=== PATIENT | female | born 1955 | race Caucasian/White ===

== ENCOUNTER → 2018-02-11 14:20 | Outpatient (CLI) | payer BC, SELFPAY ==
--- NOTE | 2018-02-11 | DI.RAD.S_ITS ---
PROCEDURE: XR CHEST 2V INDICATIONS: ASTHMA/WHEEZING TECHNIQUE: 2 views of the chest were acquired. COMPARISON: [facility], CT, PE STUDY (CTA CHEST), 05/03/2017, 10:59. [facility], CR, CHEST 1 VIEW, 05/03/2017, 9:33. [facility], CR, CHEST 2 VIEW, 06/26/2017, 13:04. FINDINGS: Surgical changes and devices: Rim calcified mammoplasty implants are incidentally noted. Lungs and pleura: No pleural effusions or pneumothorax. Lungs are clear. The lungs are hyperexpanded, with flattening of the hemidiaphragms seen. Mediastinum: Mediastinal contours are normal. Heart size is normal. Bones and chest wall: No suspicious bony abnormalities. Age-appropriate bony degenerative changes are seen. Soft tissues appear unremarkable. IMPRESSION: Hyperexpanded lungs are seen. No focal infiltrates are seen. Postoperative and degenerative changes are seen. Dictated by: Bobby Diallo M.D. on 02/11/2018 at 14:09 Approved by: Bobby Diallo M.D. on 02/11/2018 at 14:11
[2018-02-11 15:32] LABS: Add Manual Diff / Slide Review NO; Basophils Percent Auto 0.2 % (0-2); Eosinophils Percent Auto 0.1 % (2-4); Hematocrit 41.9 % (36-46); Hemoglobin 13.9 g/dL (12.0-16.0); Lymphocytes Percent Auto 6.5 % (25-40); Mean Corpuscular HGB Conc 33.3 % (30-36); Mean Corpuscular Hemoglobin 31.3 PG (26-34); Mean Corpuscular Volume 94.1 fL (80-100); Monocytes Percent Auto 4.2 % (3-14); Neutrophils Absolute Auto 9900 /uL (3000-5900); Platelet Count 296 X10^3/uL (150-400); Red Blood Cell Count 4.45 X10^6/uL (4.0-5.2); Red Cell Distribution Width 13.4 % (11.6-14.8); White Blood Cell Count 11.2 X10^3/uL (4.5-11.0)
[2018-02-11 15:48] LABS: BUN Creatinine Ratio 22.9 (6-22); Blood Urea Nitrogen 16 mg/dL (7-17); Calcium 9.2 mg/dL (8.4-10.2); Carbon Dioxide 31 mmol/L (22-32); Chloride 100 mmol/L (98-107); Estimated Glomerular Filt Rate > 60.0 mL/min (>60); Glucose 224 mg/dL (80-110); HEMOLYSIS < 15 (0-50); Potassium 5.1 mmol/L (3.4-5.1); Sodium 140 mmol/L (137-145)
[2018-02-11 17:26] LABS: Hemoglobin A1C% w Est Avg Glu 6.3 % (4.0-6.0)
== END ==
PROVIDERS: PCP Physician Assistant; Visit Provider Physician Assistant
DX: R06.02 Shortness of breath (principal); J45.998 Other asthma; R73.09 Other abnormal glucose
CPT/HCPCS: 36415; 71046; 80048; 83036; 85025

== ENCOUNTER → 2018-07-30 14:28 | Outpatient (CLI) | payer BC, SELFPAY ==
--- NOTE | 2018-07-30 | DI.RAD.S_ITS ---
PROCEDURE: XR CHEST 2V INDICATIONS: Severe persistent asthma, uncomplicated TECHNIQUE: 2 views of the chest were acquired. COMPARISON: [facility], CR, XR CHEST 2V, 02/11/2018, 14:23. FINDINGS: Surgical changes and devices: Bilateral breast implants. Lungs and pleura: Lungs are clear. No pleural effusions or pneumothorax. Mediastinum: Mediastinal contours are normal. Heart size is normal. Bones and chest wall: No suspicious bony abnormalities. Soft tissues appear unremarkable. IMPRESSION: No acute pulmonary process. Dictated by: Feli Sanabria M.D. on 07/30/2018 at 14:49 Approved by: Feli Sanabria M.D. on 07/30/2018 at 14:49
== END ==
PROVIDERS: Family Provider Physician Assistant; PCP Physician Assistant; Visit Provider Internal Medicine
DX: J45.50 Severe persistent asthma, uncomplicated (principal)
CPT/HCPCS: 71046

== ENCOUNTER 2019-02-08 12:04 | Emergency (ER) | payer BC, SELFPAY ==
[2019-02-08 12:12] VITALS: BP 156/77; PULSE 81; RESP 15; TEMP 36.6; O2SAT 100; BMI 27.3
--- NOTE | 2019-02-08 12:12 | DI.RAD.S_ITS ---
PROCEDURE: XR WRIST LT MIN 3V INDICATIONS: pain TECHNIQUE: 3 views of the wrist were acquired. COMPARISON: None. FINDINGS: Bones: No fractures or dislocations. No suspicious bony lesions. First CMC joint, triscaphe joint and radiocarpal joint osteoarthritis. Scaphoid view: Not requested. Soft tissues: No suspicious soft tissue calcifications. IMPRESSION: No fracture. No acute osseous lesion. If symptoms and/or clinical suspicion for pathology persists, further assessment with repeat radiographs (7-10 days) or advanced imaging (e.g. CT, MRI or bone scan) may be helpful. Dictated by: Griselda Greenfield MD, PhD on 02/08/2019 at 12:27 Approved by: Griselda Greenfield MD, PhD on 02/08/2019 at 12:30
[2019-02-08] MEDS: IBUPROFEN 400 MG TABLET PO (13:16)
--- NOTE | 2019-02-08 13:31 | ED.UPPEXIN ---
HPI - Extremity Injury (Upper) <BRENDA CarlP - Last Filed: 02/08/19 13:42> General Chief Complaint: Extremity Injury, Upper Stated Complaint: FALL LANDED ON LEFT THUMB/HAND Time Seen by Provider: 02/08/19 12:32 Source: patient Mode of arrival: Ambulatory Limitations: no limitations History of Present Illness HPI narrative: This is a 64-year-old female, smoker, who presents to ED with left base of thumb discomfort after fall on out reached hand. Patient reports she slipped on a rock in accidentally and fell backwards. She denies injuring other areas. Denies increasing pain in her left shoulder or elbow and reports is able to move without difficulty. She reports pain increases with movement on her right thumb but states sensation is intact. Related Data Home Medications Medication Instructions Recorded Confirmed Dulera 2 inh INH BID #0 05/03/17 02/08/19 tramadol 50 mg PO BID PRN #0 05/03/17 02/08/19 estradiol 1 mg PO DAILY 02/08/19 02/08/19 levothyroxine 100 mcg PO DAILY 02/08/19 02/08/19 meloxicam 15 mg PO DAILY 02/08/19 02/08/19 montelukast 10 mg PO DAILY 02/08/19 02/08/19 pravastatin 20 mg PO DAILY 02/08/19 02/08/19 venlafaxine mg PO 02/08/19 Allergies Allergy/AdvReac Type Severity Reaction Status Date / Time No Known Drug Allergies Allergy Unknown Verified 02/08/19 12:12 [NO KNOWN DRUG ALLERGIES] codeine [CODEINE] AdvReac Mild ITCHY Verified 02/08/19 12:12 Review of Systems <JAIME Carl - Last Filed: 02/08/19 13:42> Review of Systems Narrative: General: Denies fever, chills, fatigue, malaise, sweats. HEENT: Denies sinus pain, ear pain, sore throat, difficulty swallowing, dizziness. Respiratory: Denies dyspnea, cough, wheezing, hemoptysis, sputum. Cardiovascular: Denies chest pain, palpitations, orthopnea, edema. Gastrointestinal: Denies nausea, vomiting, abdominal pain, diarrhea, constipation, melena. : Denies dysuria, frequency, incontinence, hematuria, urinary retention. Musculoskeletal: See HPI Skin: Denies rash, skin lesions, or other. Neurologic: Denies weakness, headache, numbness, change in speech, confusion, seizures, incoordination. Psychiatric: No concerning psychosocial issues. 12-point review of systems is negative except for those stated above. PFSH <JAIME Carl - Last Filed: 02/08/19 13:42> Medical History (Updated 02/08/19 @ 13:35 by JAIME Carl) History of hypothyroidism (Acute) Hyperlipidemia (Acute) Surgical History (Updated 02/08/19 @ 13:35 by JAIME Carl) No pertinent past surgical history (Acute) Social History Smoking Status: Current every day smoker Social History Smoking Status: Current every day smoker Exam <JAIME Carl - Last Filed: 02/08/19 13:42> Narrative Exam Narrative: General appearance: well developed, well nourished, in no acute distress. Head: normocephalic, atraumatic, no scalp lesions, non-tender. Eye: pupil equal, round. EOMI. Nose: nares patent. Oral: mucosa moist. Neck/Thyroid: neck supple, full range of motion, no visible masses. Skin: no suspicious rashes, lesions over visible areas. Warm and dry. Heart: no clubbing, no cyanosis, no edema. Lungs: Breathing even and unlabored. No stridor. No accessory muscles used. Chest: normal shape and expansion. Abdomen: non-obese, non-distended. Neurologic: alert and oriented. Cognitive exam, NURSE PRACTITIONER and PNS grossly intact on informal exam. Psych: good eye contact, normal affect. Initial Vital Signs Initial Vital Signs: Vital Signs Temperature 97.8 F 02/08/19 12:12 Pulse Rate 81 02/08/19 12:12 Respiratory Rate 15 02/08/19 12:12 Blood Pressure 156/77 H 02/08/19 12:12 Pulse Oximetry 100 02/08/19 12:12 Extrem Left upper extremity: full ROM and hand Details: normal to inspection, normal capillary refill, neuromotor exam normal Details: wrist extension normal and thumb opposition normal, neurosensory exam abnormal, tenderness (First metacarpal), vascular exam Details: radial pulse present and normal capillary refill, swelling Location: of the palm (Base of 1st metacarpal) and ecchymosis (Light 1st metacarpal); no unusual warmth and no crepitus Other: Positive active range of motion on left shoulder, elbow without increasing pain. Patient ambulatory in stable gait <Angie Aguirre DO - Last Filed: 02/08/19 18:54> Initial Vital Signs Initial Vital Signs: Vital Signs Temperature 97.8 F 02/08/19 12:12 Pulse Rate 81 02/08/19 12:12 Respiratory Rate 15 02/08/19 12:12 Blood Pressure 156/77 H 02/08/19 12:12 Pulse Oximetry 100 02/08/19 12:12 Procedures <JAIME Carl - Last Filed: 02/08/19 13:42> Orthopedic Splinting/Casting Injury #1: Side: left Upper Extremity Injury Location: hand Upper Extremity Immobilizer: wrist splint (Prefabricated) Post splinting neuro exam: intact Post splinting vascular exam: intact Placed by: Nursing Course <JAIME Carl - Last Filed: 02/08/19 13:42> Orders Ordered: ED Orders 02/08/19 12:12 XR wrist LT min 3V Stat Discontinued Medications Ibuprofen (Advil) 400 mg PO NOW ONE Stop: 02/08/19 13:01 Last Admin: 02/08/19 13:16 Dose: 400 mg Documented by: SCANAPO Vital Signs Vital signs: Vital Signs - 8 hr 02/08/19 12:12 Temperature 97.8 F Pulse Rate 81 Respiratory Rate 15 Blood Pressure 156/77 H Pulse Oximetry 100 <Agnie Aguirre DO - Last Filed: 02/08/19 18:54> Orders Ordered: ED Orders 02/08/19 12:12 XR wrist LT min 3V Stat Discontinued Medications Ibuprofen (Advil) 400 mg PO NOW ONE Stop: 02/08/19 13:01 Last Admin: 02/08/19 13:16 Dose: 400 mg Documented by: SCANAPO Vital Signs Vital signs: Vital Signs - 8 hr 02/08/19 12:12 Temperature 97.8 F Pulse Rate 81 Respiratory Rate 15 Blood Pressure 156/77 H Pulse Oximetry 100 [facility] - Extremity Injury (Upper) <JAIME Carl - Last Filed: 02/08/19 13:42> Differential Diagnosis Differential diagnosis: Likely sprain and strain of wrist, fracture of wrist, finger sprain and fracture of hand Medical Records Attestation: I reviewed the patient's medical records. Imaging Data XR-Wrist LT: Radiologist's impression: [address] [address] XRay Report Signed Patient: Maryana Skinner EMR#: [id number] : 5Acct:[id number] Age/Sex: 64 / FDate of Service: 02/08/19 Loc: ED Accession Number: [id number] Procedure: XR wrist LT min 3V Ordering Provider: Angie Aguirre D.O. PROCEDURE: XR WRIST LT MIN 3V INDICATIONS: pain TECHNIQUE: 3 views of the wrist were acquired. COMPARISON: None. FINDINGS: Bones: No fractures or dislocations. No suspicious bony lesions. First CMC joint, triscaphe joint and radiocarpal joint osteoarthritis. Scaphoid view: Not requested. Soft tissues: No suspicious soft tissue calcifications. IMPRESSION: No fracture. No acute osseous lesion. If symptoms and/or clinical suspicion for pathology persists, further assessment with repeat radiographs (7-10 days) or advanced imaging (e.g. CT, MRI or bone scan) may be helpful. Dictated by: Griselda Greenfield MD, PhD on 02/08/2019 at 12:27 Approved by: Griselda Greenfield MD, PhD on 02/08/2019 at 12:30 [facility] Narrative Medical decision making narrative: This is a 64-year-old female, had FOOSH and landed on left hand falling backwards today. Patient states this was due to mechanical, slipped and fell. No other injuries were identified during this fall. X-ray shows no acute findings such as fracture but radiocarpal joint osteoarthritis. Affected hand was splinted with prefabricated splint. Patient advised to use RICE therapy for discomfort and take jvgw-zmz-lciwhet Tylenol and Motrin for pain. Advised to follow up with her primary care physician especially the pain is not improving for possible additional imaging test for occult findings. Patient verbalized the understanding and agrees with treatment plan. <Angie Aguirre, - Last Filed: 02/08/19 18:54> [facility] Narrative Medical decision making narrative: Case discussed, images were reviewed. Plan for supportive care and repeat imaging if not improving. Discharge Plan Departure Patient Disposition: Home Clinical Impression: Contusion of hand, left Qualifiers: Encounter type: initial encounter Qualified Code(s): S60.222A - Contusion of left hand, initial encounter Discharge Date/Time: 02/08/19 14:14 Instructions: DI for Contusion Activity Restrictions/Additional Instructions: You have been diagnosed with [left base of thumb/hand contusion from fall. The x-ray test does not show fracture but osteoarthritis today]. What to do: *Take your medications as directed. Please use ?RICE? therapy such as Rest, Ice, Compression/Spliint/Acewra, and Elevation above the chest level. Ice the area for next 24-48 hrs after the initial injury. Please try to avoid getting swelling to the affected site since this may cause increasing pain. You could use OTC Tylenol and or Ibuprofen as needed for pain. Please monitor for increasing pain, swelling, tingling/numbness, unable to move affected/below the injury site, cool limbs. You may need repeat x-ray test if her pain persists. *Follow up with your primary care provider in 2-3 days, call for an appointment. Let them know you were seen in the ED and that we asked you to be seen in follow up. Prescriptions: No Action Dulera 200 MCG/5 MCG HFA aerosol inhaler 2 inh INH BID Qty: 0 RF: 0 tramadol 50 MG tablet 50 mg PO BID PRN (Reason: pain) Qty: 0 RF: 0 venlafaxine 75 mg capsule,extended release 24hr PO RF: 0 meloxicam 15 mg tablet 15 mg PO DAILY RF: 0 levothyroxine 100 mcg tablet 100 mcg PO DAILY RF: 0 estradiol 1 mg tablet 1 mg PO DAILY RF: 0 montelukast 10 mg tablet 10 mg PO DAILY RF: 0 pravastatin 20 mg tablet 20 mg PO DAILY RF: 0 Referrals: Idalia Smith PA-C [Primary Care Provider] -
== END 2019-02-08 14:14 | disposition home or self-care (01) ==
PROVIDERS: Emergency Provider Nurse Practitioner Family; Family Provider Physician Assistant; PCP Physician Assistant
DX: S60.222A Contusion of left hand, initial encounter (principal); W01.0XXA Fall on same level from slipping, tripping and stumbling without subsequent striking against object, initial encounter
CPT/HCPCS: 29280; 73110; 99282; 99283

== ENCOUNTER → 2019-02-22 11:12 | Outpatient (CLI) | payer BC, SELFPAY ==
--- NOTE | 2019-02-22 | DI.RAD.S_ITS ---
PROCEDURE: XR FOOT LT MIN 3V INDICATIONS: LT FOOT PAIN TECHNIQUE: 3 views of the foot were acquired. COMPARISON: None. FINDINGS: Bones: No fractures or dislocations but there is degenerative osteoarthritis at the first MTP joint there is severe with wvas-cs-vusm articulation. Mild degenerative changes seen elsewhere, no erosive arthritis is found.. No suspicious bony lesions. Soft tissues: No tibiotalar joint effusion. Achilles tendon appears normal. 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 Dictated by: Vinnie Hobbs M.D. on 02/22/2019 at 12:23 Approved by: Vinnie Hobbs M.D. on 02/22/2019 at 12:24
[2019-02-22 12:26] LABS: Add Manual Diff / Slide Review NO; Basophils Absolute Auto 100 /uL (0-100); Eosinophils Absolute Auto 200 /uL (0-450); Eosinophils Percent Auto 2.6 % (2-4); Hematocrit 43.2 % (36-46); Hemoglobin 14.5 g/dL (12.0-16.0); Lymphocytes Absolute Auto 1700 /uL (1100-4500); Lymphocytes Percent Auto 22.7 % (25-40); Mean Corpuscular HGB Conc 33.5 % (30-36); Mean Corpuscular Volume 92.4 fL (80-100); Monocytes Absolute Auto 400 /uL (0-900); Monocytes Percent Auto 5.6 % (3-14); Neutrophils Absolute Auto 5100 /uL (1500-7000); Neutrophils Percent Auto 68.1 % (50-75); Platelet Count 267 X10^3/uL (150-400); Red Blood Cell Count 4.68 X10^6/uL (4.0-5.2); Red Cell Distribution Width 12.7 % (11.6-14.8); White Blood Cell Count 7.5 X10^3/uL (4.5-11.0)
[2019-02-22 13:25] LABS: Alanine Aminotransferase 16 IU/L (9-52); Albumin 4.5 g/dL (3.5-5.0); Alkaline Phosphatase 78 U/L (38-126); Aspartate Aminotransferase 23 IU/L (14-36); BUN Creatinine Ratio 18.6 (6-22); Bilirubin Total 0.5 mg/dL (0.2-1.3); Blood Urea Nitrogen 13 mg/dL (7-17); Calcium 9.6 mg/dL (8.4-10.2); Carbon Dioxide 30 mmol/L (22-32); Chloride 101 mmol/L (98-107); Cholesterol 218 mg/dL (140-199); Estimated Glomerular Filt Rate > 60.0 mL/min (>60); Globulin 2.3 g/dL (1.7-4.1); Glucose 127 mg/dL (80-110); HDL Cholesterol 73 mg/dL (40-60); HEMOLYSIS < 15 (0-50); LDL Cholesterol Calculated 125 mg/dL (<100); Potassium 4.8 mmol/L (3.4-5.1); Sodium 141 mmol/L (137-145); Total Protein 6.8 g/dL (6.3-8.2); Triglycerides 102 mg/dL (35-150)
[2019-02-22 13:50] LABS: TSH w/ Reflex to FT4 2.23 uIU/mL (0.47-4.68)
== END ==
PROVIDERS: PCP Physician Assistant; Visit Provider Physician Assistant
DX: M79.672 Pain in left foot (principal); M19.072 Primary osteoarthritis, left ankle and foot; E03.9 Hypothyroidism, unspecified; E78.2 Mixed hyperlipidemia; R73.03 Prediabetes
CPT/HCPCS: 36415; 73630; 80053; 80061; 83036; 84443; 85025

== ENCOUNTER → 2020-01-19 14:42 | Outpatient (CLI) | payer MEDICARE, BC, SELFPAY ==
--- NOTE | 2020-01-19 | DI.RAD.S_ITS ---
PROCEDURE: XR CHEST 2V INDICATIONS: SEVERE PERSISTANT ASTHMA WITH ACUTE EXACERBATION TECHNIQUE: 2 views of the chest were acquired. COMPARISON: [facility], CR, XR CHEST 2V, 07/30/2018, 14:34. [facility], CR, XR CHEST 2V, 02/11/2018, 14:23. FINDINGS: Surgical changes and devices: None. Lungs and pleura: Lungs are clear. No pleural effusions or pneumothorax. Mediastinum: Mediastinal contours are normal. Heart size is normal. Bones and chest wall: No suspicious bony abnormalities. Soft tissues appear unremarkable. IMPRESSION: Idania to little large lung volumes, flattening of the diaphragms. No definite traveler changer time, however. No pneumonia found. Dictated by: Vinnie Hobbs M.D. on 01/19/2020 at 15:42 Approved by: Vinnie Hobbs M.D. on 01/19/2020 at 15:43
== END ==
PROVIDERS: PCP Physician Assistant; Referring Provider Physician Assistant; Visit Provider Physician Assistant
DX: J45.51 Severe persistent asthma with (acute) exacerbation (principal)
CPT/HCPCS: 71046

== ENCOUNTER → 2020-01-19 16:06 | Outpatient (CLI) | payer MEDICARE, BC, SELFPAY ==
[2020-01-20 13:05] LABS: COVID19 Sendout Not Detected (Not Detected)
== END ==
PROVIDERS: PCP Physician Assistant; Visit Provider Physician Assistant
DX: R05 Cough (principal); J45.51 Severe persistent asthma with (acute) exacerbation
CPT/HCPCS: 71046; 87635

== ENCOUNTER → 2020-02-15 09:21 | Outpatient (CLI) | payer MEDICARE, BC, SELFPAY ==
[2020-02-15 10:39] LABS: Add Manual Diff / Slide Review NO; Basophils Absolute Auto 100 /uL (0-100); Basophils Percent Auto 0.7 % (0-2); Eosinophils Absolute Auto 100 /uL (0-450); Eosinophils Percent Auto 1.1 % (2-4); Hematocrit 41.7 % (36-46); Lymphocytes Absolute Auto 1500 /uL (1100-4500); Lymphocytes Percent Auto 17.1 % (25-40); Mean Corpuscular HGB Conc 33.5 % (30-36); Mean Corpuscular Hemoglobin 31.8 PG (26-34); Mean Corpuscular Volume 94.9 fL (80-100); Monocytes Absolute Auto 500 /uL (0-900); Monocytes Percent Auto 6.1 % (3-14); Neutrophils Absolute Auto 6600 /uL (1500-7000); Platelet Count 243 X10^3/uL (150-400); Red Blood Cell Count 4.39 X10^6/uL (4.0-5.2); Red Cell Distribution Width 13.6 % (11.6-14.8); White Blood Cell Count 8.8 X10^3/uL (4.5-11.0)
== END ==
PROVIDERS: PCP Physician Assistant; Referring Provider Internal Medicine Critical Care Medicine; Visit Provider Internal Medicine Critical Care Medicine
DX: J45.51 Severe persistent asthma with (acute) exacerbation (principal)
CPT/HCPCS: 36415; 85025

== ENCOUNTER 2020-04-29 10:37 | Emergency (ER) | payer MEDICARE, BC, SELFPAY ==
[2020-04-29 10:56] VITALS: BP 188/101; PULSE 83; RESP 17; TEMP 37; O2SAT 99; BMI 28.8
--- NOTE | 2020-04-29 11:01 | PC.NURSE ---
uncertain of cause of back pain. reports Hx of scoliosis and artheritis. She thinks she may have injured her back when she was using her knee scooter practicing for an upcoming left ankle fusion surgery. Denies changes in bowel or bladder.
--- NOTE | 2020-04-29 11:14 | ED_ITS ---
HPI - Back Pain/Injury General Chief Complaint: Back Pain/Injury Stated Complaint: back pain, started yesterday Time Seen by Provider: 04/29/20 11:10 Source: patient Mode of arrival: Ambulatory Limitations: no limitations History of Present Illness HPI Narrative: Patient is a 65-year-old female who presents with right-sided lower lumbar pain ongoing since yesterday morning. She said she is due to have surgery on her ankle and has a scooter so she was practicing using the scooter the day before but does not remember injuring herself. The today she feels like she is having excruciating spasm in her right lumbar area that radiates around to the anterior side of her thigh. She denies any numbness tingling or weakness. No changes urine or stool. She has been taking Tylenol and ibuprofen without any relief. He has also been using ice and heat currently has an ice pack MD Complaint: back pain Onset (ago): day(s) Duration: constant Location: lumbar spine Quality: sharp Radiation: none Related Data Home Medications Medication Instructions Recorded Confirmed Dulera 2 inh INH BID #0 05/03/17 01/19/20 tramadol 50 mg PO BID PRN #0 05/03/17 01/19/20 estradiol 1 mg PO DAILY 02/08/19 01/19/20 levothyroxine 100 mcg PO DAILY 02/08/19 01/19/20 meloxicam 15 mg PO DAILY 02/08/19 01/19/20 montelukast 10 mg PO DAILY 02/08/19 01/19/20 pravastatin 20 mg PO DAILY 02/08/19 01/19/20 venlafaxine mg PO 02/08/19 01/19/20 Previous Rx's Medication Instructions Recorded amoxicillin 875 mg-potassium 1 tab PO BID #20 tab 01/19/20 clavulanate 125 mg tablet benzonatate 100 mg capsule 100 mg PO BID PRN #30 cap 01/19/20 ipratropium 0.5 mg-albuterol 3 mg 3 ml INHALATION Q6-8H PRN #90 ml 01/19/20 (2.5 mg base)/3 mL nebulization soln esvyrhepqkeh-uqedfdpzknvxx-fdhgvqo 5 ml PO Q6H PRN #118 ml 01/19/20 6.25 mg-5 mg-10 mg/5 mL oral syrup diazepam [Valium] 5 mg PO Q12HR PRN #10 tab 04/29/20 Allergies Allergy/AdvReac Type Severity Reaction Status Date / Time No Known Drug Allergies Allergy Unknown Verified 01/19/20 15:48 [NO KNOWN DRUG ALLERGIES] codeine [CODEINE] AdvReac Mild ITCHY Verified 01/19/20 15:48 Review of Systems Review of Systems Narrative: GENERAL: Denies chills,fever HEENT: Denies throat pain RESPIRATORY: Denies dyspnea, cough, wheezing CARDIOVASCULAR: Denies chest pain, palpitations GASTROINTESTINAL: Denies nausea, vomiting MUSCULOSKELETAL: See HPI SKIN: No rash, no laceration, no pruritus NEUROLOGIC: Denies weakness, dizziness, headache, numbness 8 point review of systems is negative except for those stated above and HPI Patient History Medical History History of hypothyroidism Hyperlipidemia Sinusitis Surgical History No pertinent past surgical history Social History Smoking Status: Current every day smoker Smoking Status: Current every day smoker alcohol intake frequency: 0-2 drinks per day Substance Use Type: does not use Exam Initial Vital Signs Initial Vital Signs: Vital Signs Temperature 98.6 F 04/29/20 10:56 Pulse Rate 83 04/29/20 10:56 Respiratory Rate 17 04/29/20 10:56 Blood Pressure 188/101 H 04/29/20 10:56 Pulse Oximetry 99 04/29/20 10:56 GENERAL: Patient overall appears in discomfort HEENT: Head atraumatic,EOMI, pupils reactive, face symmetric, moist mucous membranes CARDIOVASCULAR: Regular rate and rhythm without murmurs, rubs or gallops. RESPIRATORY: Breath sounds equal bilaterally, no wheezes rales or rhonchi. ABDOMEN: Soft, nontender. Normoactive bowel sounds all 4 quadrants. No gua rding or rebound. BACK: No vertebral tenderness step-offs a right lumbar pain tender to touch spasm present : No CVA tenderness EXTREMITIES: Normal range of motion, no clubbing or edema. Neurovascularly intact NEUROLOGICAL: Alert and oriented x4.Normal gait and speech. Cranial nerves II through XII grossly intact. SKIN: Warm, dry, no laceration, no petechiae, no rashes or lesions. Course Orders Ordered: Discontinued Medications Diazepam (Diazepam 5 Mg Tablet) 5 mg PO NOW ONE Stop: 04/29/20 11:20 Last Admin: 04/29/20 11:29 Dose: 5 mg Documented by: MERCEDES Ketorolac Tromethamine (Ketorolac 60 Mg/2 Ml Vial) 30 mg IM NOW ONE Stop: 04/29/20 11:20 Last Admin: 04/29/20 11:28 Dose: 30 mg Documented by: MERCEDES Vital Signs Vital signs: Vital Signs - 8 hr 04/29/20 10:56 04/29/20 12:16 Temperature 98.6 F Pulse Rate 83 69 Respiratory Rate 17 18 Blood Pressure 188/101 H 165/82 H Pulse Oximetry 99 97 MDM - Back Pain/Injury MDM Narrative Medical decision making narrative: Pain overall significantly improved. No red flag symptoms. At this time most likely skeletal. Recommend conservative treatment no need for imaging at this time Discharge Plan Departure Patient Disposition: Home Clinical Impression: Back pain Instructions: DI for Back Spasm Activity Restrictions/Additional Instructions: *You have been diagnosed with back spasm *What to do: Increase activity as tolerated light stretching heat. No strenuous activity or heavy lifting *Continue to take medications as directed Ibuprofen 600 mg every 6-8 hours if needed for enkk-sf-sbjhfmfn pain do not take for 8 hours after she leaves the emergency department Tylenol 1000 mg every 6 hours needed for ehgm-uq-afarieeh pain Valium 5 mg every 12 hours if needed for muscle spasm--> SENT TO [facility] *Follow up with your primary care provider in 2-3 days *Return to ER if you should have changes in bowel or bladder, weakness in lower extremities or any new, worsening or concerning symptoms Prescriptions: New diazepam [Valium] 5 mg tablet 5 mg PO Q12HR PRN (Reason: muscle spasm) Qty: 10 RF: 0 No Action benzonatate [Tessalon Perles] 100 mg capsule 100 mg PO BID PRN (Reason: cough) Qty: 30 RF: 0 amoxicillin-pot clavulanate [Augmentin] 875-125 mg tablet 1 tab PO BID Qty: 20 RF: 0 ipratropium-albuterol 0.5 mg-3 mg(2.5 mg base)/3 mL solution for nebulization 3 ml INHALATION Q6-8H PRN (Reason: shortness of breath or wheezing) Qty: 90 RF: 0 lykuapruifil-zdbluzlgi-otrdcjj 6.25-5-10 mg/5 mL syrup 5 ml PO Q6H PRN (Reason: cough) Qty: 118 RF: 0 Dulera 200 MCG/5 MCG HFA aerosol inhaler 2 inh INH BID Qty: 0 RF: 0 tramadol 50 MG tablet 50 mg PO BID PRN (Reason: pain) Qty: 0 RF: 0 venlafaxine 75 mg capsule,extended release 24hr PO RF: 0 meloxicam 15 mg tablet 15 mg PO DAILY RF: 0 levothyroxine 100 mcg tablet 100 mcg PO DAILY RF: 0 estradiol 1 mg tablet 1 mg PO DAILY RF: 0 montelukast 10 mg tablet 10 mg PO DAILY RF: 0 pravastatin 20 mg tablet 20 mg PO DAILY RF: 0 Referrals: Idalia Smith PA-C [Primary Care Provider] -
[2020-04-29] MEDS: KETOROLAC 60 MG/2 ML VIAL 30 MG IM (11:28)
[2020-04-29] MEDS: diazePAM 5 MG TABLET PO (11:29)
[2020-04-29 12:16] VITALS: BP 165/82; PULSE 69; RESP 18; O2SAT 97
== END 2020-04-29 12:32 | disposition home or self-care (01) ==
PROVIDERS: Emergency Provider Emergency Medicine; PCP Physician Assistant
DX: M54.5 Low back pain (principal); E78.5 Hyperlipidemia, unspecified; I10 Essential (primary) hypertension
CPT/HCPCS: 96372; 99281; 99283; J1885

== ENCOUNTER → 2020-05-16 09:03 | Outpatient (CLI) | payer MEDICARE, BC, SELFPAY ==
[2020-05-16 11:32] LABS: COVID19 -Nasal RAPID Negative (Negative)
== END ==
PROVIDERS: PCP Physician Assistant; Visit Provider Nurse Practitioner
DX: Z01.812 Encounter for preprocedural laboratory examination (principal); Z20.822 Contact with and (suspected) exposure to COVID-19
CPT/HCPCS: 87635; C9803

== ENCOUNTER 2020-05-18 06:05 | Day surgery (SDC) | payer MEDICARE, BC, SELFPAY ==
[2020-05-17 08:30] VITALS: BMI 29.0
[2020-05-18] VITALS (14 sets, daily range): BP systolic 116–150; BP diastolic 50–85; PULSE 75–94; RESP 8–20; TEMP 36.1–37; O2SAT 93–99; BMI 29.0
--- NOTE | 2020-05-18 | DI.RAD.S_ITS ---
PROCEDURE: XR FOOT LT MIN 3V INDICATIONS: FUSION LEFT TALONAVICULAR JOINT TECHNIQUE: 6 views of the foot were acquired. COMPARISON: [facility], CR, XR FOOT LT MIN 3V, 02/22/2019, 11:20. FINDINGS: Bones: No fractures or dislocations. No suspicious bony lesions. Fusion procedure 1st MTP joint with fixation plate and screws. Additional fusion procedure talonavicular articulation, with fusion plate and longitudinal screw. Soft tissues: No tibiotalar joint effusion. Achilles tendon appears normal. IMPRESSION: Normal alignment established after 1st MTP joint effusion and talonavicular fusion. Dictated by: Vinnie Hobbs M.D. on 05/18/2020 at 11:15 Approved by: Vinnie Hobbs M.D. on 05/18/2020 at 11:16
[2020-05-18] MEDS: LACTATED RINGERS 1,000 ML 42 ML IV ×2 (07:09→10:16)
--- NOTE | 2020-05-18 07:20 | PM.PREOP ---
Pre-operative Note COVID-19 COVID-19 status: Negative Interval Note History & Physical reviewed/Exam performed by Physician: Yes Changes to H&P: No
[2020-05-18] MEDS: CEFAZOLIN 2 GM/100 ML FROZ.PIGGY IV (08:02)
--- NOTE | 2020-05-18 08:02 | P.OP_ITS ---
Operative Date/Time/Diagnoses Date of procedure: 05/18/20 Time of procedure: 08:20 Pre-op diagnosis: Arthritis left foot M19.072 arthritis 1st MTP joint M19.079 Post-op diagnosis: same Procedure & Clinicians Procedure: 1. Fusion talonavicular joint left foot CPT code 16947 2. Fusion 1st tarsometatarsal joint left foot CPT code 67986-01 3. 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 She has persistent pain and has failed conservative treatments with bracing and stiff- soled shoes and anti-inflammatories. She has been indicated for arthrodesis of her end-stage arthritic talonavicular joint and 1st MTP joint. The risks and benefits of the procedure have been discussed with the patient even opportunity to ask questions. The risks of surgery include but are not limited to infection, malunion, nonunion, persistence of pain, damage to nerves and blood vessels, posttraumatic arthritis, DVT, PE, cardiopulmonary complications and . The patient expressed a thorough understanding of the risks and benefits of surgery and has elected to proceed. Consent was signed in the office. She has been advised to stop any hormonal therapy. She will have DVT prophylaxis with Lovenox injections and then transition to aspirin. Surgeon: Layne Figueroa Receipt And Report Clerk: Tanisha Rogers Anesthesia Type: General and Local Operative Notes Findings: End-stage epyk-ck-czci arthritis with large osteophytes left talonavicular joint and 1st MTP joint. eburnated bone at both the 1st MTP and talonavicular joints. Large osteophytes dorsally at the talonavicular joint and 1st MTP joint Closure Type: primary Specimen(s): none sent Prosthetic devices, grafts, tissues, transplants, or devices: [id number] 18 mm staple talonavicular joint [id number] 5.5 headless short thread cannulated screw talonavicular joint 0 degree small MTP plate, left. and 2.7 locking screws, 1 nonlock ing screw proximally paragon 28 4.0 partially-threaded screw, headed 22 mm short thread 1st MTP joint Applied: implant(s) Estimated Blood Loss (mL): 30 Blood products transfused: none Tourniquet time (min): 130 Procedure in detail: The patient was seen in the preoperative area the site of surgery was marked informed consent confirmed. Patient's back to the operating room by the anesthesia team. A regional block was placed by the anesthesia team for postoperative pain control. Patient was positioned in the supine position on the operative table. All bony prominences well padded. Well-padded thigh tourniquet was placed. The left hip and the left foot were prepped and draped in the standard sterile fashion. A formal time-out procedure was performed confirming the patient's side and site of surgery administration of appropriate preoperative antibiotics And presence of informed consent. Implants were in the room. All were in agreement. Attention turned to the left lower extremity. An Esmarch was used for exsanguination the tourniquet raised on the thigh to 250 mm of mercury. Attention turned to the talonavicular joint. A dorsomedial incision between the tibialis anterior and EHL was taken down through the skin subcutaneous tissues. Care was taken to protect the tendinous structures. The talonavicular joint was identified. There were large osteophytes and ruhv-ed-ydkt arthritis at this joint. Osteophytes were removed using a rongeur. The joint was exposed. The K-wire retractor was placed and for distraction. The joint surface was extremely eburnated. Joint surfaces were prepared using the osteotomes bur and then the 2.5 drill. This was repaired back down to bleeding subchondral bone. Next attention was turned to the iliac crest bone graft. once this was obtained it was mixed with the 5 cc of demineralized cortical fiber allograft and placed into the joint at the talonavicular joint. Joint was provisionally pinned. Alignment was checked on intraoperative fluoroscopy in multiple planes. This was then secured with a another temporary K-wire. The guidewire was over drilled . during over drilling the 1st K wire broke off with in the navicular bone. since this was intact across the joint This was removed and a new guidewire placed we drilled and then and a 5.5 screw that was headless from the paragon set was placed. Next to secure the dorsal lateral aspect of the talonavicular joint a staple from the paragon set was positioned and drilled and placed. Attention was then turned to the 1st MTP joint. iliac crest autograft bone: attention was turned to the iliac crest harvest site. The iliac crest was palpated. A small stab incision with a 15 blade was made. The 11 gauge jam she the trocar needle was advanced down to the bone and mallet it into the bone. The trocar was removed. Syringe was used to aspirate in 1-2 cc aliquots approximately 6 cc of bone marrow aspirate to mix in with the allograft. Additionally the trocar was advanced into the iliac crest to take core/ Dowel iliac crest autograft and to mix into the graft. MTP joint fusion: attention was turned to the left MTP joint the incision was marked out starting about 2 cm proximal to the into the joint and curving distally just short of the IP joint. This was taken down to skin and subcutaneous tissue. The EHL was retracted laterally. Capsule and EDP was split exposing the joint. This was highly arthritic with large osteophytes and eburnated bone. Capsule was released exposing the joint. Retractors were placed in. The joint was hyperflexed and the released using a McGlamry elevator. A rongeur was used to remove the bone spurs and at medial eminence. The K-wire for the cone and cup reamers was then placed. A 21 mm Reamer was placed over the metatarsal head this fit nicely. This was taken down to cancellous bone. The wire was removed and a directed to the proximal phalanx distally. The 21 male Reamer was then used on the proximal phalanx. Rongeur was used to clean up any remaining spurs. The wire was removed curette was used for any remaining calcified cartilage. Then the 2 mm drill bit was used to fenestrate the bone with multiple drill holes down to bleeding bone. Since we did have some extra bone graft mixture this was then placed in a small amount in the 1st MTP joint. First MTP joint was then reduced and pinned with a provisional K-wire. Alignment was checked on a flat plate and was appropriate just being able to pass a [place] elevator underneath the toe between the plate with a 2 mm of clearance. Clinically this with appropriate alignment and was checked on AP and lateral fluoroscopic x-rays. At this point the 0 small left side MTP plate was fit the bone this was provisionally fixed with the olive wires. Next the the guide for the cannulated screw was placed on and using the center hole for the guide pin was drilled. As this was a measured for a 22 mm screw at this was over drilled. The screw was placed partially in the other temporary wire was removed screw was then placed crossed compressing the fracture. The guide was removed and attention was turned to the screws. Three locking screws were placed distally these were all 12 mm. And proximally 2 locking screws 14 mm were placed and 114 mm nonlocking screw was placed through the oblong hole. These were finally tightened. Final multiplanar fluoroscopy was obtained confirming hardware fixation alignment. Tourniquet was released closure was completed hemostasis was obtained. Deep closure was 2-0 Vicryl subcutaneous with 4-0 Monocryl and of 4-0 and 3-0 nylon were used in the smaller as skin incisions. For the talonavicular and MTP main incisions a ZipLine closure system was used for the skin and skin glue placed. A dressing was placed with Pastor bulky Story style splint and U and posterior slab. Patient was woken from anesthesia and taken to recovery unit in good condition there no immediate complications and procedure. Additionally prior to closure about 10 cc of local anesthetic was used in the skin. Complications: none Post-operative Disposition: PACU Plan for aftercare: Nonweightbearing or touchdown for balance okay. This will remain for 8 weeks and then progressive weight-bearing. We will use Lovenox for the 1st 2 weeks of DVT prophylaxis and likely switch to 325 mg of aspirin b.i.d. patient will have oxycodone for pain control. Follow-up in 2 weeks for wound check.
--- NOTE | 2020-05-18 08:10 | SUR.PREOP ---
Block start time [0749] . Monitoring initiated and maintained throughout procedure. Oxygen and medications given by anesthesiologist. Patient remained stable throughout procedure, no adverse reactions noted. Block end time [0758]. Pt resting with eyes closed during procedure, easily arousable to voice when spoken to. Pt taken into the OR after completion of block, vss.
--- NOTE | 2020-05-18 08:38 | SUR.OPER ---
Supine on padded OR bed, head on pillow, arms secured on padded arm boards at <90 degrees abduction, legs uncrossed, left leg propped on bath blankets per surgeon, right leg secured with tape, safety belt at abdomen, hip bump on left, arms secured per anes.
[2020-05-18] MEDS: BUPIVACAINE 0.5% W/ EPI (PF) 30 ML VIAL INJ (09:07)
[2020-05-18] MEDS: fentaNYL 100 MCG/2 ML INJ IV (11:31)
[2020-05-18] MEDS: HYDROMORPHONE 2 MG INJ IV ×3 (11:41→12:14)
[2020-05-18] MEDS: ONDANSETRON 4 MG/2 ML INJ IV ×2 (11:53→12:52)
[2020-05-18] MEDS: OXYCODONE/ACETAMINOPHEN 5/325 TABLET 1 TAB PO (12:30)
--- NOTE | 2020-05-18 12:36 | SUR.PHASEI ---
REPORT TO RELIEF CHEY MONSALVE
--- NOTE | 2020-05-18 12:40 | SUR.PHASEI ---
report received at this time, assume care.
--- NOTE | 2020-05-18 12:52 | P.PCN_ITS ---
Procedures Date/Time Date of procedure: 05/18/20 Time of procedure: 07:45 General Procedure description: Ultrasound guided popliteal sciatic nerve block for post op pain control after left foot surgery by Dr. Figueroa. Risk and benefits of p rocedure discussed with patient. ASA monitoring applied to patient. Oxygen given via nasal cannula. 2 mg Versed and 50 mcg fentanyl given for procedural sedation. Skin site was prepped with chlorhexidine and allowed to fully dry. Sterile gloves, mask, hat and probe cover were used to maintain sterility. 2% lidocaine and 30ga needle was used to make a small skin wheal at needle insertion site. Under ultrasound guidance, a 21ga 100mm Pajunk needle was directed near the division of the sciatic nerve into tibial and peroneal nerve in the popliteal fossa (lateral approach). Patient reported no parasthesias. After negative aspiration, 20 mL 0.5% ropivicaine and 10mg dexamethasone were injected around sciatic nerve. Patient tolerated procedure well.
== END 2020-05-18 13:36 | disposition home or self-care (01) ==
PROVIDERS: PCP Physician Assistant; Referring Provider Orthopaedic Surgery Foot and Ankle Surgery; Visit Provider Orthopaedic Surgery Foot and Ankle Surgery
PROC: (CPT 27870; principal; 2020-05-18 07:45)
DX: M19.072 Primary osteoarthritis, left ankle and foot (principal); J45.909 Unspecified asthma, uncomplicated; F17.210 Nicotine dependence, cigarettes, uncomplicated
CPT/HCPCS: 28740; 28750; 20900; 64450; 73630; 76000; J0360; J0690; J1100; J1170; J2250; J2405; J2704; J3010

== ENCOUNTER 2021-11-07 00:41 | Emergency (ER) | payer MEDICARE, BC, SELFPAY ==
[2021-11-07 00:50] VITALS: BP 180/80; PULSE 94; RESP 23; TEMP 37.7; O2SAT 95; BMI 24.5
[2021-11-07] MEDS: ALBUTEROL/IPRATROPIUM 3 ML AMPUL INH (01:13)
[2021-11-07 01:14] LABS: COVID19 -Nasal RAPID Negative (Negative)
[2021-11-07] MEDS: ALBUTEROL 2.5 MG/3 ML NEB (ADULT) INH (01:14)
[2021-11-07 01:15] VITALS: O2SAT 96
--- NOTE | 2021-11-07 01:33 | DI.RAD.S_ITS ---
PROCEDURE: XR CHEST 2V INDICATIONS: short of breath TECHNIQUE: 2 views of the chest were acquired. COMPARISON: [facility], CR, XR CHEST 2V, 07/30/2018, 14:34. [facility], CR, XR CHEST 2V, 01/19/2020, 14:48. FINDINGS: Surgical changes and devices: There are peripherally calcified breast implants redemonstrated bilaterally. Lungs and pleura: There is hyperinflation of the lungs with flattening of the hemidiaphragms compatible with COPD. No acute consolidation. No pleural effusions or pneumothorax. Mediastinum: Mediastinal contours are normal. Heart size is normal. Bones and chest wall: No suspicious bony abnormalities. Soft tissues appear unremarkable. IMPRESSION: 1. Findings consistent with COPD redemonstrated without acute consolidation. Dictated by: Neftali Campbell M.D. on 11/07/2021 at 2:46 Approved by: Neftali Campbell M.D. on 11/07/2021 at 2:47
--- NOTE | 2021-11-07 01:45 | ED_ITS ---
HPI - URI/Sore Throat General Chief Complaint: Shortness of Breath/Dyspnea Stated Complaint: BAD ASTHMA HARD TO BREATH Time Seen by Provider: 11/07/21 01:36 Source: patient Mode of arrival: Ambulatory History of Present Illness HPI Narrative: Patient here with . Complaints fever chills cough and wheezing. Feeling better after breathing treatment here nebulizer. Patient has history for asthma. Is a smoker. History of diabetes. Recently had chest x-ray 2 days ago at another hospital. Currently on prednisone pack. She does smoke. Patient has history of recurrent pneumonia as well as bronchitis. Patient tested positive for parainfluenza 3 a few months ago. She is COVID vaccinated. Related Data Home Medications Medication Instructions Recorded Confirmed tramadol 50 mg tablet 50 mg PO BID PRN pain ##0 05/03/17 05/18/20 levothyroxine 100 mcg tablet 100 mcg PO DAILY 02/08/19 05/18/20 montelukast 10 mg tablet 10 mg PO DAILY 02/08/19 05/18/20 venlafaxine 75 mg capsule,extended 75 mg PO DAILY 02/08/19 05/18/20 release 24 hr cetirizine 5 mg tablet 5 mg PO DAILY 05/18/20 05/18/20 esomeprazole magnesium 20 mg 20 mg PO DAILY 05/18/20 05/18/20 capsule,delayed release (Nexium 24HR) fluticasone 500 mcg-salmeterol 50 1 inh inhalation BID 05/18/20 05/18/20 mcg/dose blistr powdr for inhalation (Advair Diskus) Previous Rx's Medication Instructions Recorded ipratropium 0.5 mg-albuterol 3 mg 3 ml inhalation Q6-8H PRN 01/19/20 (2.5 mg base)/3 mL nebulization shortness of breath or wheezing soln #90 mL diazepam 5 mg tablet (Valium) 5 mg PO Q12HR PRN muscle spasm #10 04/29/20 tabs enoxaparin 40 mg/0.4 mL 40 mg (0.4 mL) SUBCUT DAILY #4 mL 05/18/20 subcutaneous syringe (Lovenox) ondansetron HCl 4 mg tablet 4 mg PO Q8H PRN nausea and 05/18/20 (Zofran) vomiting #7 tabs oxycodone 5 mg tablet 5 mg PO Q4H PRN pain #42 tabs 05/18/20 Allergies Allergy/AdvReac Type Severity Reaction Status Date / Time codeine [CODEINE] AdvReac Mild ITCHY Verified 05/18/20 06:45 Myoohpy-BIE-UyS Reductase AdvReac Mild Muscle Pain Verified 05/18/20 06:45 Inhibitor [Zwuzfwu-Gbh-Ful Reductase Inhibitor] Review of Systems Review of Systems Narrative: GENERAL: Positive for chills, fatigue, malaise, fever, sweats. HEENT: Denies sinus pain, ear pain, sore throat RESPIRATORY: Positive for dyspnea, cough CARDIOVASCULAR: Denies chest pain, palpitations GASTROINTESTINAL: Denies nausea, vomiting, abdominal pain : Denies dysuria, frequency, hematuria MUSCULOSKELETAL: denies muscle or bony pain SKIN: Denies rash, skin lesions NEUROLOGIC: Denies weakness, numbness ROS Unobtainable: All systems reviewed & are unremarkable except as noted in HPI and below Patient History Medical History Asthma DDD (degenerative disc disease) Depression DJD (degenerative joint disease) History of hypothyroidism Hyperlipidemia Psoriasis Sinusitis Surgical History History of bilateral breast implants (1988) History of surgery (12/2013) History of tonsillectomy and adenoidectomy History of total abdominal hysterectomy Hx of appendectomy (1977) Hx of elbow surgery No pertinent past surgical history Social History household members: spouse Smoking Status: Current every day smoker alcohol intake: current Smoking Status: Current every day smoker alcohol intake frequency: 0-2 drinks per day Substance Use Type: does not use Exam Narrative Exam Narrative: GENERAL: in no distress, not toxic not dyspneic HEAD: Normocephalic. EYES: Pupils equal round No scleral icterus. ENT: Mucous membranes moist. NECK: Trachea midline. CARDIOVASCULAR: Regular rate and rhythm without murmurs RESPIRATORY: Speaking full sentences. In no distress. There is coarse bilateral basilar lung sounds. Has scant wheezing. GASTROINTESTINAL: Abdomen soft, non-tender EXTREMITIES: No gross deformities. BACK: No flank tenderness. NEURO: AOx4. SKIN: Warm and dry PSYCH: Not anxious, is cooperative Initial Vital Signs Initial Vital Signs: Vital Signs Temperature 99.8 F H 11/07/21 00:50 Pulse Rate 94 H 11/07/21 00:50 Respiratory Rate 23 11/07/21 00:50 Blood Pressure 180/80 H 11/07/21 00:50 Pulse Oximetry 95 11/07/21 00:50 Oxygen Delivery Method 11/07/21 00:50 Course Course Course Narrative: No new issues during course of stay Orders Ordered: ED Orders 11/07/21 00:50 COVID19 -Nasal RAPID/Pre-Proc Stat 11/07/21 01:02 RT Consult Eval and Treat NOW 11/07/21 01:33 Chest [XR chest 2V] Stat 11/07/21 02:10 CBC Auto Diff [Complete Blood Count AUTO DIFF] Stat CMP [Comprehensive Metabolic Panel] Stat Lactate (Lactic Acid) Stat Procalcitonin Stat Respiratory Panel (Film Array) Stat Discontinued Medications Acetaminophen (Acetaminophen 325 Mg Tablet) 650 mg PO NOW ONE Stop: 11/07/21 03:44 Last Admin: 11/07/21 03:48 Dose: 650 mg Documented By: AMBER Albuterol (Albuterol 2.5 Mg/3 Ml Neb (Adult)) 2.5 mg INH NOW ONE Stop: 11/07/21 01:05 Last Admin: 11/07/21 01:14 Dose: 2.5 mg Documented By: MARTHA Albuterol/Ipratropium (Albuterol/Ipratropium 3 Ml Ampul) 3 ml INH NOW ONE Stop: 11/07/21 01:05 Last Admin: 11/07/21 01:13 Dose: 3 ml Documented By: MARTHA Methylprednisolone (Methylprednisolone 125 Mg/2 Ml Vial) 125 mg IV NOW ONE Stop: 11/07/21 01:44 Last Admin: 11/07/21 01:54 Dose: 125 mg Documented By: AMBER Reevaluation(s) Reevaluation #1: Patient sleeping. Awoke to review results with her and . Patient feels much better. She does need a work note for today. She states she has breathing treatments at home as well as cough medication. She desires discharge home. She is currently taking prednisone tapered regimen Blood pressure improved 128/58, 92% room air pulse 95. Temperature noted at 100.6 and Tylenol ordered Time: 03:39 Vital Signs Vital signs: Vital Signs - 8 hr 11/07/21 00:50 11/07/21 01:15 11/07/21 03:43 Temperature 99.8 F H 100.6 F H Pulse Rate 94 H 95 H Respiratory Rate 23 Blood Pressure 180/80 H 128/58 L Pulse Oximetry 95 96 92 Oxygen Delivery Method Room Air Room Air Room Air Oxygen Flow Rate 0 MDM - URI/Sore Throat Differential Diagnosis Differential diagnosis: Likely upper respiratory infection, viral infection, bronchitis, influenza and other (Pneumonia/asthma exacerbation) Lab Data Result diagrams: 11/07/21 02:10 11/07/21 02:10 Labs: Lab Results 11/07/21 11/07/21 11/07/21 Range/Units 00:50 02:10 02:10 WBC 11.5 H (4.5-11.0) X10^3/uL RBC 4.10 (4.0-5.2) X10^6/uL Hgb 12.4 (12.0-16.0) g/dL Hct 37.5 (36-46) % MCV 91.6 (80-100) fL MCH 30.4 (26-34) PG MCHC 33.2 (30-36) % RDW 13.4 (11.6-14.8) % Plt Count 301 (150-400) X10^3/uL Neut % (Auto) 78.5 H (50-75) % Lymph % (Auto) 12.9 L (25-40) % [place] % (Auto) 8.1 (3-14) % Eos % (Auto) 0.1 L (2-4) % Baso % (Auto) 0.4 (0-2) % Neut # (Auto) 9000 H (8091-5715) /uL Lymph # (Auto) 1500 (3231-0951) /uL [place] # (Auto) 900 (0-900) /uL Eos # (Auto) 0 (0-450) /uL Baso # (Auto) 0 (0-100) /uL Sodium 139 (137-145) mmol/L Potassium 3.5 (3.4-5.1) mmol/L Chloride 106 (98-107) mmol/L Carbon Dioxide 28 (22-32) mmol/L BUN 15 (7-17) mg/dL Creatinine 0.80 (0.52-1.04) mg/dL Estimated GFR > 60 (>60) mL/min BUN/Creatinine Ratio 18.8 (6-22) Glucose 170 H (80-110) mg/dL Lactate (0.7-2.1) mmol/L Calcium 9.0 (8.4-10.2) mg/dL Total Bilirubin 0.3 (0.2-1.3) mg/dL AST 25 (14-36) IU/L ALT 25 (<35) IU/L Alkaline Phosphatase 90 (38-126) U/L Total Protein 6.5 (6.3-8.2) g/dL Albumin 4.1 (3.5-5.0) g/dL Globulin 2.4 (1.7-4.1) g/dL Albumin/Globulin Ratio 1.7 (1.0-2.8) Procalcitonin 0.06 (<0.5) ng/mL Chlamy pneumoniae PCR (Not Detect) Adenovirus (PCR) (Not Detect) B. pertussis DNA (PCR) (Not Detecte) B.parapertussis DNA PCR (Not Detecte) Coronavirus OC43 (PCR) (Not Detect) Coronavirus HKU1 (PCR) (Not Detect) Coronavirus 229E (PCR) (Not Detect) SARS-CoV-2 (PCR) Negative (Negative) Coronavirus NL63 (PCR) (Not Detect) Human Metapneumovir PCR (Not Detect) Influenza Type A (PCR) (Not Detect) Influenza Type B (PCR) (Not Detect) M. pneumoniae (PCR) (Not Detect) Parainfluenza 1 (PCR) (Not Detect) Parainfluenza 2 (PCR) (Not Detect) Parainfluenza 3 (PCR) (Not Detect) Parainfluenza 4 (PCR) (Not Detect) RSV (PCR) (Not Detect) Entero/Rhino (PCR) (Not Detect) 11/07/21 11/07/21 Range/Units 02:10 02:10 WBC (4.5-11.0) X10^3/uL RBC (4.0-5.2) X10^6/uL Hgb (12.0-16.0) g/dL Hct (36-46) % MCV (80-100) fL MCH (26-34) PG MCHC (30-36) % RDW (11.6-14.8) % Plt Count (150-400) X10^3/uL Neut % (Auto) (50-75) % Lymph % (Auto) (25-40) % [place] % (Auto) (3-14) % Eos % (Auto) (2-4) % Baso % (Auto) (0-2) % Neut # (Auto) (9213-4483) /uL Lymph # (Auto) (6915-3947) /uL [place] # (Auto) (0-900) /uL Eos # (Auto) (0-450) /uL Baso # (Auto) (0-100) /uL Sodium (137-145) mmol/L Potassium (3.4-5.1) mmol/L Chloride (98-107) mmol/L Carbon Dioxide (22-32) mmol/L BUN (7-17) mg/dL Creatinine (0.52-1.04) mg/dL Estimated GFR (>60) mL/min BUN/Creatinine Ratio (6-22) Glucose (80-110) mg/dL Lactate 2.9 H (0.7-2.1) mmol/L Calcium (8.4-10.2) mg/dL Total Bilirubin (0.2-1.3) mg/dL AST (14-36) IU/L ALT (<35) IU/L Alkaline Phosphatase (38-126) U/L Total Protein (6.3-8.2) g/dL Albumin (3.5-5.0) g/dL Globulin (1.7-4.1) g/dL Albumin/Globulin Ratio (1.0-2.8) Procalcitonin (<0.5) ng/mL Chlamy pneumoniae PCR Not detected (Not Detect) Adenovirus (PCR) Not detected (Not Detect) B. pertussis DNA (PCR) Not detected (Not Detecte) B.parapertussis DNA PCR Not detected (Not Detecte) Coronavirus OC43 (PCR) Not detected (Not Detect) Coronavirus HKU1 (PCR) Not detected (Not Detect) Coronavirus 229E (PCR) Not detected (Not Detect) SARS-CoV-2 (PCR) Not detected (Negative) Coronavirus NL63 (PCR) Not detected (Not Detect) Human Metapneumovir PCR Not detected (Not Detect) Influenza Type A (PCR) Not detected (Not Detect) Influenza Type B (PCR) Not detected (Not Detect) M. pneumoniae (PCR) Not detected (Not Detect) Parainfluenza 1 (PCR) Not detected (Not Detect) Parainfluenza 2 (PCR) Not detected (Not Detect) Parainfluenza 3 (PCR) Not detected (Not Detect) Parainfluenza 4 (PCR) Not detected (Not Detect) RSV (PCR) Not detected (Not Detect) Entero/Rhino (PCR) Detected H (Not Detect) Imaging Data Chest x-ray: Radiologist's Impression: [address] [address] XRay Report Signed Patient: Maryana Skinner MR#: [id number] : 1955 Acct:[id number] Age/Sex: 66 / F Date of Service: 11/07/21 Loc: ED Accession Number: [id number] ?? Procedure: XR chest 2V Ordering Provider: Elio Ghosh MD PROCEDURE:? XR CHEST 2V ? INDICATIONS:? short of breath ? TECHNIQUE:? 2 views of the chest were acquired.? ? COMPARISON:? [facility], CR, XR CHEST 2V, 07/30/2018, 14:34.? [facility], CR, XR CHEST 2V, 01/19/2020, 14:48. ? FINDINGS:? ? Surgical changes and devices:? There are peripherally calcified breast implants redemonstrated bilaterally.? ? Lungs and pleura:? There is hyperinflation of the lungs with flattening of the hemidiaphragms compatible with COPD.? No acute consolidation.? No pleural effusions or pneumothorax.? ? Mediastinum:? Mediastinal contours are normal.? Heart size is normal.? ? Bones and chest wall:? No suspicious bony abnormalities.? Soft tissues appear unremarkable.? ? IMPRESSION:? ? 1. Findings consistent with COPD redemonstrated without acute consolidation.? ? Dictated by: Neftali Campbell M.D. on 11/07/2021 at 2:46 ? ? Approved by: Neftali Campbell M.D. on 11/07/2021 at 2:47 ? MDM Narrative Medical decision making narrative: Appropriate for discharge home. Patient already has steroid pack as well as cough medication and breathing treatments at home. Feels much better after Solu-Medrol here. Return precautions reviewed with patient. She desires discharge home. She does have a family doctor to follow up with. Discharge Plan Departure Patient Disposition: Home Clinical Impression: Acute bronchitis due to Rhinovirus, Asthma exacerbation Instructions: Acute Bronchitis, DI for Asthma -- Adult, DI for Viral Upper Respiratory Infection -- Adult Activity Restrictions/Additional Instructions: Stop smoking. See family doctor within a week for recheck. Continue home steroid pack. Continue home cough medication. Continue home breathing treatments. Return if worse if any questions or concerns. Prescriptions: No Action ipratropium-albuterol 0.5 mg-3 mg(2.5 mg base)/3 mL solution for nebulization 3 ml INHALATION Q6-8H PRN (Reason: shortness of breath or wheezing) Qty: 90 0RF tramadol 50 MG tablet 50 mg PO BID PRN (Reason: pain) Qty: 0 esomeprazole magnesium [Nexium 24HR] 20 mg Capsule,Delayed Release(Dr/Ec) 20 mg PO DAILY fluticasone propion-salmeterol [Advair Diskus] 500-50 mcg/dose Blister With Device 1 inh INHALATION BID cetirizine 5 mg Tablet 5 mg PO DAILY enoxaparin [Lovenox] 40 mg/0.4 mL syringe 40 mg SUBCUT DAILY Qty: 4 0RF oxycodone 5 mg tablet 5 mg PO Q4H PRN (Reason: pain) Qty: 42 0RF Rx Instructions: exempt postop ondansetron HCl [Zofran] 4 mg tablet 4 mg PO Q8H PRN (Reason: nausea and vomiting) Qty: 7 1RF diazepam [Valium] 5 mg tablet 5 mg PO Q12HR PRN (Reason: muscle spasm) Qty: 10 0RF venlafaxine 75 mg capsule,extended release 24hr 75 mg PO DAILY levothyroxine 100 mcg tablet 100 mcg PO DAILY montelukast 10 mg tablet 10 mg PO DAILY Referrals: Idalia Smith PA-C [Primary Care Provider] - Stand Alone Forms: Work Release Note Visit Report Forms: Patient Portal/API
[2021-11-07] MEDS: methylPREDNISolone 125 MG/2 ML VIAL IV (01:54)
[2021-11-07 02:19] LABS: Add Manual Diff / Slide Review NO; Basophils Absolute Auto 0 /uL (0-100); Basophils Percent Auto 0.4 % (0-2); Eosinophils Absolute Auto 0 /uL (0-450); Eosinophils Percent Auto 0.1 % (2-4); Hematocrit 37.5 % (36-46); Hemoglobin 12.4 g/dL (12.0-16.0); Lymphocytes Absolute Auto 1500 /uL (1100-4500); Lymphocytes Percent Auto 12.9 % (25-40); Mean Corpuscular HGB Conc 33.2 % (30-36); Mean Corpuscular Hemoglobin 30.4 PG (26-34); Mean Corpuscular Volume 91.6 fL (80-100); Monocytes Absolute Auto 900 /uL (0-900); Monocytes Percent Auto 8.1 % (3-14); Neutrophils Absolute Auto 9000 /uL (1500-7000); Neutrophils Percent Auto 78.5 % (50-75); Platelet Count 301 X10^3/uL (150-400); Red Cell Distribution Width 13.4 % (11.6-14.8); White Blood Cell Count 11.5 X10^3/uL (4.5-11.0)
[2021-11-07 02:34] LABS: Alanine Aminotransferase 25 IU/L (<35); Albumin 4.1 g/dL (3.5-5.0); Albumin Globulin Ratio 1.7 (1.0-2.8); Alkaline Phosphatase 90 U/L (38-126); Aspartate Aminotransferase 25 IU/L (14-36); BUN Creatinine Ratio 18.8 (6-22); Bilirubin Total 0.3 mg/dL (0.2-1.3); Blood Urea Nitrogen 15 mg/dL (7-17); Carbon Dioxide 28 mmol/L (22-32); Chloride 106 mmol/L (98-107); Estimated Glomerular Filt Rate > 60 mL/min (>60); Globulin 2.4 g/dL (1.7-4.1); Glucose 170 mg/dL (80-110); HEMOLYSIS < 15 (0-50); Potassium 3.5 mmol/L (3.4-5.1); Sodium 139 mmol/L (137-145); Total Protein 6.5 g/dL (6.3-8.2)
[2021-11-07 02:35] LABS: Lactate (Lactic Acid) 2.9 mmol/L (0.7-2.1)
[2021-11-07 02:51] LABS: Procalcitonin 0.06 ng/mL (<0.5)
[2021-11-07 03:25] LABS: Adenovirus Not Detected (Not Detect); B. parapertussis Not Detected (Not Detecte); Bordetella pertussis Not Detected (Not Detecte); Chlamydophila pneumoniae Not Detected (Not Detect); Coronavirus 229E Not Detected (Not Detect); Coronavirus HKU1 Not Detected (Not Detect); Coronavirus NL 63 Not Detected (Not Detect); Coronavirus OC43 Not Detected (Not Detect); Human Metapneumovirus Not Detected (Not Detect); Human Rhinovirus/Enterovirus Detected (Not Detect); Influenza A Not Detected (Not Detect); Influenza B Not Detected (Not Detect); Mycoplasma pneumoniae Not Detected (Not Detect); Parainfluenza Virus 1 Not Detected (Not Detect); Parainfluenza Virus 2 Not Detected (Not Detect); Parainfluenza Virus 3 Not Detected (Not Detect); Parainfluenza Virus 4 Not Detected (Not Detect); Respiratory Syncytial Virus Not Detected (Not Detect); SARS- CoV-2 Not Detected (Not Detecte)
[2021-11-07 03:43] VITALS: BP 128/58; PULSE 95; TEMP 38.1; O2SAT 92
[2021-11-07] MEDS: ACETAMINOPHEN 325 MG TABLET 650 MG PO (03:48)
[2021-11-07 04:14] LABS: Reflexed Lactate in 2 Hours Y
== END 2021-11-07 03:55 | disposition home or self-care (01) ==
PROVIDERS: Emergency Provider Emergency Medicine; PCP Physician Assistant
DX: J20.6 Acute bronchitis due to rhinovirus (principal); J45.901 Unspecified asthma with (acute) exacerbation; Z20.822 Contact with and (suspected) exposure to COVID-19
CPT/HCPCS: 36415; 71046; 80053; 83605; 84145; 85025; 87633; 87635; 94640; 96374; 99284; C9803; J2930; J7613

== ENCOUNTER → 2022-10-17 12:39 | Outpatient (CLI) | payer MEDICARE, BC, SELFPAY ==
--- NOTE | 2022-10-17 | DI.MRI.S_ITS ---
BREAST MRI OF BOTH BREASTS: 10/17/2022 CLINICAL: Screening for breast cancer. PROCEDURE: MR BREAST BI WO/W CON INDICATIONS: screening for malignant neoplasm of breast TECHNIQUE: The patient was placed prone in a dedicated breast imaging coil. Precontrast axial STIR and 3D FLASH without fat saturation sequences were obtained. Both before and after bolus injection of contrast, sequential 1-minute axial 3D FLASH with fat saturation sequences for 3 time points, with subtraction images and maximum intensity projections (MIP's) generated. Delayed sagittal FLASH images with fat saturation were also obtained. CONTRAST: 20 cc ProHance IV contrast. Computer-aided detection, including computer algorithm analysis of MRI image data for lesion detection and characterization, pharmacokinetic analysis, with further physician review for interpretation, was performed. COMPARISON: [facility], CT, PE STUDY (CTA CHEST), 05/03/2017, 10:59. [facility], [place], BILATERAL SCREENING MAMMOGRAM, 07/30/2007, 16:08. FINDINGS: Image quality: Excellent. There is moderate background parenchymal enhancement. Right breast: Prepectoral silicone implant with intracapsular and extracapsular rupture. No mass or suspicious enhancement. Left breast: Prepectoral silicone implant with intracapsular and extracapsular rupture. No mass or suspicious enhancement. Miscellaneous: No enlarged lymph nodes. IMPRESSION: BENIGN Moderate background enhancement which limits exam sensitivity. No mass or suspicious enhancement. No enlarged lymph nodes. Bilateral extracapsular implant rupture. BIRADS 2. A 1 year screening mammogram is recommended. COMMENT: The imaging literature indicates that a negative contrast breast MRI examination has a high sensitivity and a moderate specificity for detecting and excluding invasive carcinomas to a detection threshold of 3-5 mm; nonetheless, appropriate clinical and mammographic follow-up are recommended. MRI is not sensitive for detecting DCIS (ductal carcinoma in situ) and may not detect large invasive neoplasms that show only minimal enhancement such as mucinous carcinoma. If there are suspicious calcifications or clinically worrisome palpable masses, then biopsy should still be considered. Invasive neoplasms can be hidden by co-existent and benign enhancement caused by mastitis, hormone therapy effects, radiation therapy, , and recent biopsy or surgery. False positive examinations can occur in a number of circumstances, including breasts that have recently been subject to invasive procedures and those that contain atypical ductal hyperplasia, hormonally stimulated glandular tissue, fat necrosis, or radial scars. Dictated by: Alonzo Billingsley M.D. on 10/17/2022 at 16:16 This exam was interpreted at Station ID: [id number]. Electronically Signed By: Alonzo Billingsley M.D. slc/:10/17/2022 16:34:20 letter sent: Normal Exam ACR BI-RADS Category 2: Benign Finding(s) 3342F
--- NOTE | 2022-10-17 12:34 | DI.DEXA.S_ITS ---
Bone Density Report Name: JULI SEPULVEDA Age: 70 Sex: Female Ethnicity: White Date of : 11/13/1951 Indication: postmenopausal; screening for osteoporosis; Referring Provider: DANNY CARDENAS Study: Bone densitometry was performed. Exam Date: October 17, 2022 Accession number: [id number] Bone Density: Region BMD T-score Z-score Classification AP Spine(L1-L4) 0.994 -0.5 1.7 Normal Femoral Neck (Left) 0.741 -1.0 0.9 Normal Total Hip (Left) 0.843 -0.8 0.7 Normal Femoral Neck (Right) 0.772 -0.7 1.1 Normal Total Hip (Right) 0.897 -0.4 1.2 Normal Total Hip Mean 0.870 -0.6 1.0 Normal World Health Organization criteria for BMD impression classify patients as: Normal (T-score at or above -1.0), Osteopenia (T-score between -1.0 and -2.5), or Osteoporosis (T-score at or below -2.5). 10-year Fracture Risk: FRAX not reported because: All T-scores for Spine Total, Hip Total, Femoral Neck at or above -1.0 Previous Exams: -- Region Exam Age BMD T-score BMD Change BMD Change Date g/cm2 vs Baseline vs Previous -- AP Spine (L1-L4) 10/17/2022 70 0.994 -0.5 -0.092 (-8.5%)# -0.092 (-8.5%)# 03/28/2021 69 1.087 0.4 Total Hip(Left) 10/17/2022 70 0.843 -0.8 0.022 (2.6%)# 0.022 (2.6%)# 03/28/2021 69 0.821 -1.0 Total Hip(Right) 10/17/2022 70 0.897 -0.4 0.025 (2.9%)# 0.025 (2.9%)# 03/28/2021 69 0.872 -0.6 -- *Denotes significance at 95% confidence level, LSC for AP Spine = 0.022 g/cm2, LSC for Total Hip = 0.027 g/cm2 # Denotes dissimilar scan types or analysis methods Impression: The patient has normal bone mass. No significant bone loss was observed. Discussion: BONE DENSITY IS ABOVE THE MINIMUM DESIRABLE LEVEL AT ALL SKELETAL SITES TESTED. This patient?s bone mineral density is above the minimum desirable level (T-score -1.0 or better) at all sites measured. The patient should follow a healthful lifestyle (good nutrition with adequate calcium and vitamin D, and appropriate weight-bearing exercise). Follow-Up: Consider repeating this study in 5 years or sooner if there is some new clinical indication. Reported by: ZURDO MENDOZA M.D. on 10/17/2022 12:43:00 PM.
== END ==
PROVIDERS: PCP Physician Assistant; Referring Provider Physician Assistant; Visit Provider Physician Assistant
DX: T85.43XA Leakage of breast prosthesis and implant, initial encounter (principal); Z12.39 Encounter for other screening for malignant neoplasm of breast; Z13.820 Encounter for screening for osteoporosis; Z78.0 Asymptomatic menopausal state
CPT/HCPCS: 77049; 77080; A9579

== ENCOUNTER 2024-08-08 23:14 | Emergency (ER) | payer MEDICARE, BC, SELFPAY ==
--- NOTE | 2024-08-08 23:30 | EKG_ITS ---
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
[2024-08-08 23:31] VITALS: BP 173/74; PULSE 64; RESP 18; TEMP 35.7; O2SAT 98; BMI 20.5
--- NOTE | 2024-08-08 23:41 | DI.CT.S_ITS ---
PROCEDURE: CT ABDOMEN PELVIS W CON INDICATIONS: RUQ pain TECHNIQUE: After the administration of intravenous contrast, axial sections acquired from the lung bases to the pubic symphysis. Coronal and sagittal reformats were performed. For radiation dose reduction, the following was used: automated exposure control, adjustment of mA and/or kV according to patient size. COMPARISON: None. FINDINGS: Image quality: Diagnostic. Lower Chest: No significant findings. ABDOMEN: Liver: Mild hepatomegaly and hepatic steatosis. No focal mass. Gallbladder: Decompressed. No calcifications or wall thickening. Biliary ducts: No biliary dilation. Pancreas: No ductal dilation. Spleen: Size is within normal limits. Adrenal Glands: No adrenal nodules. Kidneys and Ureters: Symmetric enhancement. No nephrolithiasis or hydronephrosis. No visible mass or cyst requiring follow up. No hydroureter. Stomach and Bowel: Mild circumferential mural thickening of the gastric antrum. There are several small bowel loops demonstrating mild diffuse wall thickening without luminal distention. Some fluid in pelvic small bowel loops. The appendix is not seen. Increased quantity of solid stool throughout the colon and rectum. No focal colon wall thickening. Peritoneum: No abnormal intraperitoneal fluid. No free air. Ventral Wall: No significant ventral hernia. Abdominal Nodes: No retroperitoneal or mesenteric adenopathy by size criteria. Vessels: The abdominal aorta, IVC, and portal vein are of normal caliber. PELVIS: Pelvic Organs: Hysterectomy. Bladder: No bladder wall thickening, accounting for underdistention. Pelvic Nodes: No enlarged lymph nodes. Miscellaneous: No inguinal hernias are seen. Bones: No aggressive osseous abnormality. Prominent endplate spurring, sclerosis, and disc height loss in the upper lumbar spine. IMPRESSION: Findings most consistent with gastroenteritis. Mild hepatomegaly and hepatic steatosis. Correlate with LFTs. Dictated by: Deepa Booth M.D. on 08/09/2024 at 0:59 Approved by: Deepa Booth M.D. on 08/09/2024 at 1:06
[2024-08-08 23:43] LABS: Bacteria Urine Few (2-10); Culture Indicated Urine Cult Not Indicated; Hyaline Casts Urine 0-1/LPF; Squamous Epithelial Cell Urine 5-10 /HPF (0-5/HPF); Urine Volume 10mL (spun); WBC Urine 1-5/HPF (0-5/HPF)
[2024-08-08 23:44] LABS: RBC Urine None Seen (0-5/HPF)
--- NOTE | 2024-08-08 23:46 | DI.RAD.S_ITS ---
PROCEDURE: XR CHEST 1V INDICATIONS: epigastric pain TECHNIQUE: One view of the chest was acquired. COMPARISON: [facility], CR, XR CHEST 2V, 11/07/2021, 1:36. FINDINGS: Surgical changes and devices: None. Lungs and pleura: Hyperinflated, hyperlucent lungs. No focal consolidation, effusion, or pneumothorax. Mediastinum: Mediastinal contours appear normal. Heart size is normal. Bones and chest wall: No suspicious bony lesions. Overlying soft tissues appear unremarkable. No visible pneumoperitoneum. IMPRESSION: Mild emphysema. No acute cardiopulmonary disease. Dictated by: Deepa Booth M.D. on 08/09/2024 at 1:15 Approved by: Deepa Booth M.D. on 08/09/2024 at 1:17
[2024-08-08 23:54] LABS: Add Manual Diff / Slide Review NO; Basophils Absolute Auto 0 /uL (0-100); Basophils Percent Auto 0.4 % (0-2); Eosinophils Absolute Auto 200 /uL (0-450); Eosinophils Percent Auto 2.8 % (2-4); Hemoglobin 11.9 g/dL (12.0-16.0); Lymphocytes Absolute Auto 1400 /uL (1100-4500); Lymphocytes Percent Auto 15.8 % (25-40); Mean Corpuscular HGB Conc 33.1 % (30-36); Mean Corpuscular Hemoglobin 31.1 PG (26-34); Monocytes Absolute Auto 700 /uL (0-900); Monocytes Percent Auto 7.8 % (3-14); Neutrophils Absolute Auto 6300 /uL (1500-7000); Neutrophils Percent Auto 73.2 % (50-75); Platelet Count 285 X10^3/uL (150-400); Red Blood Cell Count 3.83 X10^6/uL (4.0-5.2); Red Cell Distribution Width 14.2 % (11.6-14.8); White Blood Cell Count 8.7 X10^3/uL (4.5-11.0)
[2024-08-09 00:03] LABS: Alanine Aminotransferase 27 IU/L (<35); Albumin 3.9 g/dL (3.5-5.0); Albumin Globulin Ratio 1.7 (1.0-2.8); Alkaline Phosphatase 109 U/L (38-126); Aspartate Aminotransferase 25 IU/L (14-36); BUN Creatinine Ratio 22.5 (6-22); Bilirubin Total 0.3 mg/dL (0.2-1.3); Blood Urea Nitrogen 18 mg/dL (7-17); Calcium 9.6 mg/dL (8.4-10.2); Carbon Dioxide 24 mmol/L (22-32); Chloride 107 mmol/L (98-107); Creatine Kinase 54 U/L (30-135); Estimated Glomerular Filt Rate > 60 mL/min (>60); Globulin 2.3 g/dL (1.7-4.1); Glucose 210 mg/dL (80-110); HEMOLYSIS < 15 (0-50); Lipase 56 U/L (23-300); Potassium 4.2 mmol/L (3.4-5.1); Sodium 139 mmol/L (137-145); Total Protein 6.2 g/dL (6.3-8.2)
[2024-08-09 00:04] LABS: Magnesium 1.9 mg/dL (1.6-2.3)
[2024-08-09 00:15] LABS: Troponin I < 0.012 ng/mL (0.01-0.034)
[2024-08-09 00:31] VITALS: BP 184/85; PULSE 77; O2SAT 98
[2024-08-09 00:32] VITALS: BP 177/81; PULSE 77; O2SAT 98
--- NOTE | 2024-08-09 00:58 | ED_ITS ---
HPI - Abdominal Pain General Chief Complaint: Abdominal Pain Stated Complaint: abd pain Time Seen by Provider: 08/08/24 23:46 Source: patient Mode of arrival: Ambulatory History of Present Illness HPI narrative: 69-year-old female past medical history of asthma, hypothyroidism, comes into the ED from home for evaluation epigastric/right upper quadrant abdominal pain. States it has been intermittent in nature for the past 24 hours, states that she feels like the symptoms are getting worse therefore decided come into the ED for further evaluation and treatment. Patient denies any other symptoms such as headache visual disturbances chest pain shortness breath fever chills nausea vomiting or any other GI/ symptoms time. She states that she does believe that the pain does get slightly worse when eating but also when she is lying flat. Related Data Home Medications Medication Instructions Recorded Confirmed tramadol 50 mg tablet 50 mg PO BID PRN pain ##0 05/03/17 05/18/20 levothyroxine 100 mcg tablet 100 mcg PO DAILY 02/08/19 05/18/20 montelukast 10 mg tablet 10 mg PO DAILY 02/08/19 05/18/20 venlafaxine 75 mg capsule,extended 75 mg PO DAILY 02/08/19 05/18/20 release 24 hr cetirizine 5 mg tablet 5 mg PO DAILY 05/18/20 05/18/20 esomeprazole magnesium 20 mg 20 mg PO DAILY 05/18/20 05/18/20 capsule,delayed release (Nexium 24HR) fluticasone 500 mcg-salmeterol 50 1 inh inhalation BID 05/18/20 05/18/20 mcg/dose blistr powdr for inhalation (Advair Diskus) Previous Rx's Medication Instructions Recorded ipratropium 0.5 mg-albuterol 3 mg 3 ml inhalation Q6-8H PRN 01/19/20 (2.5 mg base)/3 mL nebulization shortness of breath or wheezing soln #90 mL diazepam 5 mg tablet (Valium) 5 mg PO Q12HR PRN muscle spasm #10 04/29/20 tabs enoxaparin 40 mg/0.4 mL 40 mg (0.4 mL) SUBCUT DAILY #4 mL 05/18/20 subcutaneous syringe (Lovenox) ondansetron HCl 4 mg tablet 4 mg PO Q8H PRN nausea and 05/18/20 (Zofran) vomiting #7 tabs oxycodone 5 mg tablet 5 mg PO Q4H PRN pain #42 tabs 05/18/20 aluminum-mag hydroxide-simethicone 10 ml PO QID PRN dyspepsia #3,000 08/09/24 200 mg-200 mg-20 mg/5 mL oral susp mL (Maalox Advanced) Allergies Allergy/AdvReac Type Severity Reaction Status Date / Time codeine [CODEINE] AdvReac Mild ITCHY Verified 05/18/20 06:45 Obtngwp-YRE-NaJ Reductase AdvReac Mild Muscle Pain Verified 05/18/20 06:45 Inhibitor [Yafytyy-Oux-Gsj Reductase Inhibitor] Review of Systems Review of Systems Narrative: General: Denies fever, chills, weight loss HEENT: Denies headache, eye drainage, eye irritation, head trauma, sore throat, voice change Cardiovascular: Denies any chest pain, palpitations, tachycardia Respiratory: Denies any shortness of breath, cough, wheeze, stridor GI/: Positive epigastric abdominal pain, denies nausea, vomiting, diarrhea, bright red blood per rectum, melanotic stools, urinary frequency, urinary retention, dysuria, hematuria MSK: Denies any joint pain, muscle pains, swelling Skin: Denies any rashes, lesions, discoloration Neuro: Denies any headache, lightheadedness, dizziness, fainting, weakness Psych: Denies SI/HI Patient History Medical History Asthma DDD (degenerative disc disease) Depression DJD (degenerative joint disease) History of hypothyroidism Hyperlipidemia Psoriasis Sinusitis Surgical History History of bilateral breast implants (1988) History of surgery (12/2013) History of tonsillectomy and adenoidectomy History of total abdominal hysterectomy Hx of appendectomy (1977) Hx of elbow surgery No pertinent past surgical history Social History household members: spouse Smoking Status: Never smoker alcohol intake: current Smoking Status: Never smoker alcohol intake frequency: 0-2 drinks per day Exam Narrative Exam Narrative: General: Cooperative, well-developed, not in acute distress HEENT: Normocephalic, atraumatic, PERRLA, normal sclera, eyelids normal Neck: Active full range of motion, atraumatic Chest: Normal to inspection, negative crepitus, no overlying erythema ecchymosis Respiratory: Normal respiratory effort, not in acute respiratory distress, clear to auscultation bilaterally negative cough, wheeze, tachypnea, rhonchi, rales Cardiology: Regular rate rhythm negative gallop, murmur, rubs GI/: Mild tenderness to palpation epigastric region, soft, non rigid, normal to inspection, exam deferred MSK: Full active range of motion in all 4 extremities, atraumatic, no tenderness to palpation of any bony prominences Skin: No rashes or lesions noted Neuro: Alert awake oriented x3, moves all 4 extremities spontaneously, cranial nerves intact, able to answer all questions appropriately follows commands appropriately Psych: Cooperative, negative suicidal or homicidal ideations Initial Vital Signs Initial Vital Signs: Vital Signs Temperature 96.3 F L 08/08/24 23:31 Pulse Rate 64 08/08/24 23:31 Respiratory Rate 18 08/08/24 23:31 Blood Pressure 173/74 H 08/08/24 23:31 Pulse Oximetry 98 08/08/24 23:31 Oxygen Delivery Method Room Air 08/08/24 23:31 Course Orders Ordered: ED Orders 08/08/24 23:25 Urine Microscopic Stat 08/08/24 23:30 EKG-12 Lead Stat 08/08/24 23:40 Complete Blood Count AUTO DIFF Stat Comprehensive Metabolic Panel Stat Lipase Stat MAG [Magnesium] Stat Troponin & CK Cardiac Panel Stat 08/08/24 23:41 CT abdomen pelvis w con Stat 08/08/24 23:46 CXR [XR chest 1V] Stat Sodium Chloride (Normal Saline 0.9%) 1,000 mls @ 1,000 mls/hr IV BOLUS ONE Stop: 08/09/24 02:11 Last Admin: 08/09/24 01:18 Dose: 1,000 mls/hr Documented By: SELVIN Ondansetron HCl (Ondansetron 4 Mg/2 Ml Inj) 4 mg IV NOW PRN PRN Reason: Nausea And Vomiting Ondansetron HCl (Ondansetron 4 Mg Odt) 4 mg PO NOW PRN PRN Reason: Nausea And Vomiting Discontinued Medications Famotidine (Famotidine 20 Mg/2 Ml Vial) 20 mg IV NOW ONE Stop: 08/09/24 01:13 Last Admin: 08/09/24 01:18 Dose: 20 mg Documented By: SB Ketorolac Tromethamine (Ketorolac 30 Mg/Ml Vial) 30 mg IV NOW ONE Stop: 08/09/24 01:13 Last Admin: 08/09/24 01:19 Dose: 30 mg Documented By: SELVIN Vital Signs Vital signs: Vital Signs - 8 hr 08/08/24 23:31 08/09/24 00:31 08/09/24 00:31 Temperature 96.3 F L Pulse Rate 64 77 Respiratory Rate 18 Blood Pressure 173/74 H 184/85 H Pulse Oximetry 98 98 Oxygen Delivery Method Room Air 08/09/24 00:32 08/09/24 00:32 08/09/24 01:00 Temperature Pulse Rate 77 Respiratory Rate Blood Pressure 177/81 H 144/64 H Pulse Oximetry 98 Oxygen Delivery Method 08/09/24 01:00 08/09/24 01:30 08/09/24 01:30 Temperature Pulse Rate 69 66 Respiratory Rate 14 18 Blood Pressure 180/74 H Pulse Oximetry 94 96 Oxygen Delivery Method Room Air MDM - Abdominal Pain Differential Diagnosis Differential diagnosis: Likely abdominal pain, pancreatitis and other (Cholelithiasis, cholecystitis) Lab Data 08/08/24 23:40 08/08/24 23:40 Labs: Lab Results 08/08/24 08/08/24 Range/Units 23:25 23:40 WBC 8.7 (4.5-11.0) X10^3/uL RBC 3.83 L (4.0-5.2) X10^6/uL Hgb 11.9 L (12.0-16.0) g/dL Hct 36.0 (36-46) % MCV 94.0 (80-100) fL MCH 31.1 (26-34) PG MCHC 33.1 (30-36) % RDW 14.2 (11.6-14.8) % Plt Count 285 (150-400) X10^3/uL Neut % (Auto) 73.2 (50-75) % Lymph % (Auto) 15.8 L (25-40) % Moore % (Auto) 7.8 (3-14) % Eos % (Auto) 2.8 (2-4) % Baso % (Auto) 0.4 (0-2) % Neut # (Auto) 6300 (0695-6918) /uL Lymph # (Auto) 1400 (0076-8330) /uL Moore # (Auto) 700 (0-900) /uL Eos # (Auto) 200 (0-450) /uL Baso # (Auto) 0 (0-100) /uL Sodium 139 (137-145) mmol/L Potassium 4.2 (3.4-5.1) mmol/L Chloride 107 (98-107) mmol/L Carbon Dioxide 24 (22-32) mmol/L BUN 18 H (7-17) mg/dL Creatinine 0.80 (0.52-1.04) mg/dL Estimated GFR > 60 (>60) mL/min BUN/Creatinine Ratio 22.5 H (6-22) Glucose 210 H (80-110) mg/dL Calcium 9.6 (8.4-10.2) mg/dL Magnesium 1.9 (1.6-2.3) mg/dL Total Bilirubin 0.3 (0.2-1.3) mg/dL AST 25 (14-36) IU/L ALT 27 (<35) IU/L Alkaline Phosphatase 109 (38-126) U/L Total Creatine Kinase 54 (30-135) U/L Troponin I < 0.012 (0.01-0.034) ng/mL Total Protein 6.2 L (6.3-8.2) g/dL Albumin 3.9 (3.5-5.0) g/dL Globulin 2.3 (1.7-4.1) g/dL Albumin/Globulin Ratio 1.7 (1.0-2.8) Lipase 56 (23-300) U/L Urine RBC None seen (0-5/HPF) Urine WBC 1-5/hpf (0-5/HPF) Ur Squamous Epith Cells 5-10 /hpf H (0-5/HPF) Urine Bacteria Few (2-10) H (None) Hyaline Casts 0-1/lpf (None) Ur Culture Indicated? Cult not indicated Vol Urine Centrifuged 10ml (spun) Point of care testing: Urine Dip Bedside Urine Glucose Negative Bedside Urine Bilirubin + 1 Bedside Urine Ketone - Negative Urine Specific [place] 1.030 Bedside Urine Occult Blood - Negative Bedside Urine pH 6.0 Bedside Urine Protein - Negative Bedside Urine Urobilinogen - Negative Bedside Urine Nitrite - Negative Bedside Urine Leukocytes - Negative Esterase Imaging Data Chest x-ray: Radiologist's Impression: [address] [address] XRay Report Signed Patient: Maryana Skinner MR#: [id number] : 1955 Acct:[id number] Age/Sex: 69 / F Date of Service: 08/08/24 Loc: ED Accession Number: [id number] Procedure: XR chest 1V Ordering Provider: Yoandy Sanches D.O. PROCEDURE: XR CHEST 1V INDICATIONS: epigastric pain TECHNIQUE: One view of the chest was acquired. COMPARISON: [facility], , XR CHEST 2V, 11/07/2021, 1:36. FINDINGS: Surgical changes and devices: None. Lungs and pleura: Hyperinflated, hyperlucent lungs. No focal consolidation, effusion, or pneumothorax. Mediastinum: Mediastinal contours appear normal. Heart size is normal. Bones and chest wall: No suspicious bony lesions. Overlying soft tissues appear unremarkable. No visible pneumoperitoneum. IMPRESSION: Mild emphysema. No acute cardiopulmonary disease. CT scan - abdomen/pelvis: Radiologist's Impression: [address] [address] [address] Scan Report Signed Patient: Maryana Skinner MR#: [id number] : 1955 Acct:[id number] Age/Sex: 69 / F Date of Service: 08/08/24 Loc: ED Accession Number: [id number] Procedure: CT abdomen pelvis w con Ordering Provider: Yoandy Sanches D.O. PROCEDURE: CT ABDOMEN PELVIS W CON INDICATIONS: RUQ pain TECHNIQUE: After the administration of intravenous contrast, axial sections acquired from the lung bases to the pubic symphysis. Coronal and sagittal reformats were performed. For radiation dose reduction, the following was used: automated exposure control, adjustment of mA and/or kV according to patient size. COMPARISON: None. FINDINGS: Image quality: Diagnostic. Lower Chest: No significant findings. ABDOMEN: Liver: Mild hepatomegaly and hepatic steatosis. No focal mass. Gallbladder: Decompressed. No calcifications or wall thickening. Biliary ducts: No biliary dilation. Pancreas: No ductal dilation. Spleen: Size is within normal limits. Adrenal Glands: No adrenal nodules. Kidneys and Ureters: Symmetric enhancement. No nephrolithiasis or hydronephrosis. No visible mass or cyst requiring follow up. No hydroureter. Stomach and Bowel: Mild circumferential mural thickening of the gastric antrum. There are several small bowel loops demonstrating mild diffuse wall thickening without luminal distention. Some fluid in pelvic small bowel loops. The appendix is not seen. Increased quantity of solid stool throughout the colon and rectum. No focal colon wall thickening. Peritoneum: No abnormal intraperitoneal fluid. No free air. Ventral Wall: No significant ventral hernia. Abdominal Nodes: No retroperitoneal or mesenteric adenopathy by size criteria. Vessels: The abdominal aorta, IVC, and portal vein are of normal caliber. PELVIS: Pelvic Organs: Hysterectomy. Bladder: No bladder wall thickening, accounting for underdistention. Pelvic Nodes: No enlarged lymph nodes. Miscellaneous: No inguinal hernias are seen. Bones: No aggressive osseous abnormality. Prominent endplate spurring, sclerosis, and disc height loss in the upper lumbar spine. IMPRESSION: Findings most consistent with gastroenteritis. Mild hepatomegaly and hepatic steatosis. Correlate with LFTs. ECG Data Interpretation: EKG interpreted by ED physician sinus 71 beats per minute, QTC 399, normal axis nonspecific ST changes no STEMI MDM Narrative Medical decision making narrative: 69-year-old female with past medical history of hypothyroidism, comes into the ED from home for evaluation of epigastric pain/right upper quadrant abdominal pain started yesterday, states that she feels like it is worse with eating, as well as lying down. Patient had lab work imaging EKG performed here in the emergency department, EKG nonischemic in nature, troponin negative, patient without any leukocytosis, creatinine 0.80, BUN 22.5, urinalysis not consistent with acute urinary tract infection, chest x-ray without any acute cardiopulmonary abnormalities, CT of the abdomen and pelvis without any acute findings, gallbladder was noted to be decompressed without calcifications or wall thickening, no dilation of the biliary duct patient will be sent home with symptomatic relief instructed follow up with primary care and Gastroenterology in outpatient setting, she verbalized understanding of this and agrees to being discharged home with outpatient follow up Discharge Plan Departure Patient Disposition: Home Clinical Impression: Acute epigastric pain Activity Restrictions/Additional Instructions: Please follow up with primary care and Gastroenterology in outpatient setting Please read the discharge instructions sheet carefully and bring all papers to all doctor follow-up visits, as it may contain information that your doctor may want to see. Disease processes change and evolve, if your symptoms worsen or if you develop any new symptoms that are concerning to you please return for evaluation. Your evaluation today does not show any evidence of any life- threatening/serious illnesses requiring admission to the hospital or surgery. Please follow-up with your doctor for re-evaluation in approximately 1 day. Seek immediate medical attention for any worrisome symptoms. *If you do not have a primary care provider please contact the [facility] Resource line at [phone]. They will ask some questions about your medical history and help get you set up with a doctor in the community. Prescriptions: New alum-mag hydroxide-simeth [Maalox Advanced] 200-200-20 mg/5 mL suspension 10 ml PO QID PRN (Reason: dyspepsia) Qty: 3000 0RF Rx Instructions: administer between meals and at bedtime No Action ipratropium-albuterol 0.5 mg-3 mg(2.5 mg base)/3 mL solution for nebulization 3 ml INHALATION Q6-8H PRN (Reason: shortness of breath or wheezing) Qty: 90 0RF tramadol 50 MG tablet 50 mg PO BID PRN (Reason: pain) Qty: 0 esomeprazole magnesium [Nexium 24HR] 20 mg Capsule,Delayed Release(Dr/Ec) 20 mg PO DAILY fluticasone propion-salmeterol [Advair Diskus] 500-50 mcg/dose Blister With Device 1 inh INHALATION BID cetirizine 5 mg Tablet 5 mg PO DAILY enoxaparin [Lovenox] 40 mg/0.4 mL syringe 40 mg SUBCUT DAILY Qty: 4 0RF oxycodone 5 mg tablet 5 mg PO Q4H PRN (Reason: pain) Qty: 42 0RF Rx Instructions: exempt postop ondansetron HCl [Zofran] 4 mg tablet 4 mg PO Q8H PRN (Reason: nausea and vomiting) Qty: 7 1RF diazepam [Valium] 5 mg tablet 5 mg PO Q12HR PRN (Reason: muscle spasm) Qty: 10 0RF venlafaxine 75 mg capsule,extended release 24hr 75 mg PO DAILY levothyroxine 100 mcg tablet 100 mcg PO DAILY montelukast 10 mg tablet 10 mg PO DAILY Referrals: Michael Echavarria MD [Non-Staff] - Meryl Coronado PA-C [Primary Care Provider] - Stand Alone Forms: Patient Portal/API/Survey
[2024-08-09 01:00] VITALS: BP 144/64; PULSE 69; RESP 14; O2SAT 94
[2024-08-09] MEDS: SODIUM CHLORIDE 0.9% 1,000 ML 1000 ML IV (01:18)
[2024-08-09] MEDS: FAMOTIDINE 20 MG/2 ML VIAL IV (01:18)
[2024-08-09] MEDS: KETOROLAC 30 MG/ML VIAL IV (01:19)
[2024-08-09 01:30] VITALS: BP 180/74; PULSE 66; RESP 18; O2SAT 96
== END 2024-08-09 02:01 | disposition home or self-care (01) ==
PROVIDERS: Emergency Provider Student in an Organized Health Care Education/Training Program; PCP Physician Assistant
DX: R10.11 Right upper quadrant pain (principal); R10.13 Epigastric pain
CPT/HCPCS: 36415; 71045; 74177; 80053; 81003; 81015; 82550; 83690; 83735; 84484; 85025; 93005; 96374; 96375; 99284; J1885; Q9967